=== PATIENT | female | born 1980 | race American Indian/Alaskan Native ===

== ENCOUNTER 2016-12-29 14:46 | Emergency (ER) | payer OTHER ==
[2016-12-29 14:49] VITALS: BMI 39.8
[2016-12-29 14:51] VITALS: TEMP 98.8; O2SAT 98
--- NOTE | 2016-12-29 15:34 | ED PDOC ---
Arrival/HPI - General Chief Complaint: Headache Time Seen by Provider: 12/29/16 15:01 Historian: Patient - History of Present Illness Narrative History of Present Illness (Text): 12/29/16 15:29 36yo morbidly obese female with PMHx of hypertension, Diabetes who present with history of intermittent facial pain, nasal congestion x weeks. Also report nausea and sharp tightening abdominal pain x 3days. she admits to urinary frequency but states is secondary to her elevated BS. States her FS was 357 this morning. She did not take her insulin and Metformin today. She denies vomiting, diarrhea, constipation, fever, chills, focal weakness, visual changes , melena, urinary symptoms, any other complaint. Past Medical History - Provider Review Nursing Documentation Reviewed: Yes - Infectious Disease Hx of Infectious Diseases: None - Tetanus Immunization Tetanus Immunization: Unknown - Cardiac Hx Cardiac Disorders: Yes Hx Hypertension: Yes - Pulmonary Hx Respiratory Disorders: Yes Hx Asthma: Yes - Neurological Hx Neurological Disorder: No - HEENT Hx HEENT Disorder: No - Renal Hx Renal Disorder: No - Endocrine/Metabolic Hx Endocrine Disorders: Yes Hx Diabetes Mellitus Type 2: Yes (iddm) - Hematological/Oncological Hx Blood Disorders: No - Integumentary Hx Dermatological Disorder: No - Musculoskeletal/Rheumatological Hx Musculoskeletal Disorders: No - Gastrointestinal Hx Gastrointestinal Disorders: No - Genitourinary/Gynecological Hx Genitourinary Disorders: No - Psychiatric Hx Psychophysiologic Disorder: No Hx Substance Use: No - Past Surgical History Past Surgical History: No Previous - Surgical History Hx Section: Yes - Anesthesia Hx Anesthesia: No Hx Anesthesia Reactions: No Hx Malignant Hyperthermia: No - Suicidal Assessment Feels Threatened In Home Enviroment: No Family/Social History - Physician Review Nursing Documentation Reviewed: Yes Family/Social History: Unknown Family HX Smoking Status: Heavy Smoker > 10 Cigarettes Daily Hx Alcohol Use: No Hx Substance Use: No Hx Substance Use Treatment: No Allergies/Home Meds Allergies/Adverse Reactions: Allergies No Known Allergies Allergy (Verified 12/29/16 14:49) Home Medications: Home Meds Medication Instructions Recorded Confirmed MetFORMIN [glucoPHAGE] 1,000 mg PO BID 07/11/16 12/29/16 Losartan [Cozaar] 30 mg PO DAILY 11/10/16 12/29/16 Potassium Chloride [Klor-Con 10 meq PO DAILY 11/10/16 12/29/16 Sprinkle] Insulin Glulisine [Apidra] 5 units SC DAILY 12/29/16 12/29/16 Review of Systems - Physician Review All systems were reviewed & negative as marked: Yes - Review of Systems Constitutional: Normal Eyes: Normal ENT: Sinus Congestion Respiratory: Normal Cardiovascular: Normal Gastrointestinal: Normal, Abdominal Pain, Nausea. absent: Constipation, Diarrhea, Vomiting, Hematochezia, Hematemesis Genitourinary Female: Normal Musculoskeletal: Normal Skin: Normal Neurological: Headache. absent: Dizziness, Focal Weakness, Speech Changes, Facial Droop Endocrine: Normal Hemo/Lymphatic: Normal Psychiatric: Normal Physical Exam Vital Signs Reviewed: Yes Vital Signs Temp Pulse Resp BP Pulse Ox 12/29/16 17:11 89 18 141/75 98 12/29/16 16:08 97 H 18 143/89 98 12/29/16 14:49 98.8 F 102 H 15 145/92 H 98 Temperature: Afebrile Blood Pressure: Normal Pulse: Tachycardic Respiratory Rate: Normal Appearance: Positive for: Well-Appearing, Non-Toxic, Comfortable Pain Distress: None Mental Status: Positive for: Alert and Oriented X 3 - Systems Exam Head: Present: Atraumatic, Normocephalic Pupils: Present: PERRL Extroacular Muscles: Present: EOMI Conjunctiva: Present: Normal Mouth: Present: Moist Mucous Membranes Nose (Internal): Present: Edematous (B/L nares), Other (Tenderness over the frontal sinus) Neck: Present: Normal Range of Motion Respiratory/Chest: Present: Clear to Auscultation, Good Air Exchange. No: Respiratory Distress, Accessory Muscle Use Cardiovascular: Present: Regular Rate and Rhythm, Normal S1, S2. No: Murmurs Abdomen: Present: Tenderness (Epigastric tenderness), Normal Bowel Sounds, Other (Soft). No: Distention, Peritoneal Signs, Rebound, Guarding, McBurney's Point Tender, Rovsing's Sign Present Back: Present: Normal Inspection Upper Extremity: Present: Normal Inspection. No: Cyanosis, Edema Lower Extremity: Present: Normal Inspection. No: Edema Neurological: Present: GCS=15, CN II-XII Intact, Speech Normal Skin: Present: Warm, Dry, Normal Color. No: Rashes Psychiatric: Present: Alert, Oriented x 3, Normal Insight, Normal Concentration Medical Decision Making ED Course and Treatment: 12/29/16 22:24 Pt presented with stated history. She was neurological intact in ED. Lab was unremarkable with the exception of BS of 300. On re evaluation s/p insulin was given her FS was 186. Result was DW the pt. she was given Augmentin for Sinusitis. Referred to her PMD. To continue with her hypoglycemics. Advised TRT ED for any new or worsening symptoms. - Lab Interpretations Lab Results: 12/29/16 15:52 12/29/16 15:52 Lab Results 12/29/16 15:52: WBC 11.3 H D, RBC 4.33, Hgb 11.7 L, Hct 35.6 L, MCV 82.2, MCH 27.0, MCHC 32.9, RDW 13.4, Plt Count 255, MPV 9.8, Gran % 65.1, Lymph % (Auto) 29.2, [place] % (Auto) 4.4, Eos % (Auto) 1.1 L, Baso % (Auto) 0.2, Gran # 7.34 H, Lymph # 3.3, [place] # 0.5, Eos # 0.1, Baso # 0.02, PT 10.3, INR 0.95, APTT 26.2, Sodium 137, Potassium 3.9, Chloride 103, Carbon Dioxide 25, Anion Gap 13, BUN 10 , Creatinine 0.7, Est GFR ( Amer) > 60, Est GFR (Non-Af Amer) > 60, Random Glucose 300 H, Calcium 8.6, Total Bilirubin 0.6, AST 31, ALT 30, Alkaline Phosphatase 53, Total Protein 6.7, Albumin 3.4, Globulin 3.2, Albumin/ Globulin Ratio 1.1 12/29/16 15:15: Urine Color Yellow, Urine Appearance Clear, Urine pH 6.0, Ur Specific [place] 1.010, Urine Protein Negative, Urine Glucose (UA) >=1000, Urine Ketones Negative, Urine Blood Negative, Urine Nitrate Negative, Urine Bilirubin Negative, Urine Urobilinogen 0.2, Ur Leukocyte Esterase Negative - Medication Orders Current Medication Orders: Discontinued Medications Amoxicillin/Clavulanate Potassium (Augmentin 875 Mg-125 Mg Tab) 1 tab PO STAT STA PRN Reason: Protocol Stop: 12/29/16 17:07 Last Admin: 12/29/16 17:16 Dose: 1 TAB Sodium Chloride (Sodium Chloride 0.9%) 1,000 mls @ 999 mls/hr IV .Q1H1M STA Stop: 12/29/16 16:21 Last Admin: 12/29/16 15:46 Dose: 999 MLS/HR eMAR Start Stop Document 12/29/16 15:46 MMA (Rec: 12/29/16 15:46 [email or web address]) Intravenous Solution Start Date 12/29/16 Start Time 15:46 End Date 12/29/16 End time 16:46 Total Infusion Time 60 Insulin Human Regular (Humulin R Med) 7 units SC ONCE STA PRN Reason: Protocol Stop: 12/29/16 16:24 Ketorolac Tromethamine (Toradol) 30 mg IVP STAT STA Stop: 12/29/16 15:23 Last Admin: 12/29/16 15:45 Dose: 30 MG IVP Administration Document 12/29/16 15:45 MMA (Rec: 12/29/16 15:45 MMA [facility]) Charges for Administration # of IVP Administrations 1 Metoclopramide HCl (Reglan) 10 mg IVP STAT STA Stop: 12/29/16 15:22 Last Admin: 12/29/16 15:45 Dose: 10 MG IVP Administration Document 12/29/16 15:45 MMA (Rec: 12/29/16 15:45 MMA [facility]) Charges for Administration # of IVP Administrations 1 Disposition/Present on Arrival - Present on Arrival Any Indicators Present on Arrival: No History of DVT/PE: No History of Uncontrolled Diabetes: No Urinary Catheter: No History of Decub. Ulcer: No History Surgical Site Infection Following: None - Disposition Have Diagnosis and Disposition been Completed?: Yes Diagnosis: Hyperglycemia, Sinusitis, Abdominal pain Disposition: HOME/ ROUTINE Disposition Time: 17:10 Patient Plan: Discharge Condition: STABLE Discharge Instructions (ExitCare): Sinusitis (ED), Diabetic Hyperglycemia (ED) , Abdominal Pain (ED) Additional Instructions: Follow up with your doctor Return to ED for any new or worsening symptoms Prescriptions: Amoxicillin/Clavulanate [Augmentin 875 MG-125 MG] 1 tab PO BID #14 tab Sucralfate [Carafate] 1 gm PO DAILY #10 tablet Famotidine [Pepcid] 40 mg PO DAILY #10 tab Referrals: Abundio Blanchard MD [Primary Care Provider] - Follow up with primary Forms: WORK NOTE
[2016-12-29] MEDS: Sodium Chloride 0.9% 1,000 ML IV STA (15:46)
[2016-12-29 15:53] LABS: ADD MANUAL DIFF? NO
[2016-12-29 15:59] LABS: BASO # 0.02 K/mm3 (0.0-2.0); BASO % 0.2 % (0.0-3.0); EOS # 0.1 (0.0-0.7); EOS % 1.1 % (1.5-5.0); GRAN # 7.34 (1.4-6.5); GRAN % 65.1 % (50.0-68.0); HEMATOCRIT 35.6 % (36.0-48.0); LYMPH # 3.3 (1.2-3.4); LYMPH % 29.2 % (22.0-35.0); MEAN CELL VOLUME 82.2 fL (80.0-105.0); MEAN CORPUSCULAR HGB CONC 32.9 g/dl (31.0-37.0); MEAN PLATELET VOLUME 9.8 fl (7.0-11.0); MONO # 0.5 (0.1-0.6); MONO % 4.4 % (1.0-6.0); PLATELET COUNT 255 10^3/uL (120.0-450.0); RED CELL DISTRIBUTION WIDTH 13.4 % (11.5-14.5); WHITE BLOOD COUNT 11.3 10^3/ul (4.5-11.0)
[2016-12-29 16:09] VITALS: RESP 18
[2016-12-29 16:12] LABS: INR 0.95 (0.93-1.08); PARTIAL THROMBOPLASTIN TIME 26.2 Seconds (23.7-30.8)
[2016-12-29 16:13] LABS: ALB/GLOB RATIO 1.1 (1.1-1.8); ALKALINE PHOSPHATASE 53 U/L (38-133); ALT/SGPT 30 U/L (7-56); AST/SGOT 31 U/L (15-39); BILIRUBIN,TOTAL 0.6 mg/dL (0.2-1.3); BLOOD UREA NITROGEN 10 mg/dL (7-21); CALCIUM 8.6 mg/dL (8.4-10.5); CARBON DIOXIDE 25 mmol/L (21-33); CHLORIDE 103 mmol/L (98-107); GFR AFRICAN-AMERICAN > 60; POTASSIUM 3.9 mmol/L (3.6-5.0); SODIUM 137 mmol/L (132-148); TOTAL PROTEIN 6.7 g/dL (5.8-8.3)
[2016-12-29 16:14] LABS: GLUCOSE,RANDOM 300 mg/dL (70-110)
[2016-12-29] MEDS ORDERED: Insulin Reg-MEDIUM-Coverage SC STA (16:23)
[2016-12-29 17:11] VITALS: BP 141/75; PULSE 89
[2016-12-29] MEDS: Amoxicillin-Clav 875-125 mg Tab PO STA (17:16)
[2016-12-29 17:22] LABS: URINE APPEARANCE CLEAR (CLEAR); URINE BILIRUBIN NEGATIVE (NEGATIVE); URINE BLOOD NEGATIVE (NEGATIVE); URINE COLOR YELLOW (YELLOW); URINE GLUCOSE (UA) >=1000 mg/dL (NEGATIVE); URINE KETONE NEGATIVE (NEGATIVE); URINE LEUKOCYTE ESTERASE NEGATIVE Leu/uL (NEGATIVE); URINE PROTEIN NEGATIVE mg/dL (<30 mg/dL); URINE UROBILINOGEN 0.2 E.U./dL (<1 E.U./dL)
== END 2016-12-29 18:20 | disposition home or self-care (01) ==
LOC: ED 14:46
DX: E11.65 Type 2 diabetes mellitus with hyperglycemia (principal); J32.9 Chronic sinusitis, unspecified; R10.9 Unspecified abdominal pain; I10 Essential (primary) hypertension; E66.01 Morbid (severe) obesity due to excess calories
CPT/HCPCS: 80053; 81003; 82948; 85025; 85610; 85730; 96361; 96374; 96375; 99285; J1885; J2765; J7040

== ENCOUNTER 2017-06-07 14:52 | Emergency (ER) | payer OTHER ==
[2017-06-07 15:07] VITALS: O2SAT 98
--- NOTE | 2017-06-07 15:10 | ED PDOC ---
Arrival/HPI - General Chief Complaint: GI Problem Time Seen by Provider: 06/07/17 14:57 Historian: Patient - History of Present Illness Time/Duration: Other (2 days) Symptom Onset: Gradual Symptom Course: Unchanged Severity Level: Moderate Activities at Onset: Rest Associated Symptoms (Text): 06/07/17 15:07 Patient complains of a 2 day history of nausea and vomiting. There is generalized body pain. No fever or chills. No dyspnea. Some mild nonproductive cough. No URI symptoms. No injury or trauma. Patient is diabetic. She has not taken her insulin. She ate pizza today. No genitourinary symptoms. Past Medical History - Infectious Disease Hx of Infectious Diseases: None - Tetanus Immunization Tetanus Immunization: Unknown - Cardiac Hx Cardiac Disorders: Yes Hx Hypertension: Yes - Pulmonary Hx Respiratory Disorders: Yes Hx Asthma: Yes - Neurological Hx Neurological Disorder: No - HEENT Hx HEENT Disorder: No - Renal Hx Renal Disorder: No - Endocrine/Metabolic Hx Endocrine Disorders: Yes Hx Diabetes Mellitus Type 2: Yes (iddm) - Hematological/Oncological Hx Blood Disorders: No - Integumentary Hx Dermatological Disorder: No - Musculoskeletal/Rheumatological Hx Musculoskeletal Disorders: No - Gastrointestinal Hx Gastrointestinal Disorders: No - Genitourinary/Gynecological Hx Genitourinary Disorders: No - Psychiatric Hx Psychophysiologic Disorder: No Hx Substance Use: No - Past Surgical History Past Surgical History: No Previous - Surgical History Hx Section: Yes - Anesthesia Hx Anesthesia: No Hx Anesthesia Reactions: No Hx Malignant Hyperthermia: No - Suicidal Assessment Feels Threatened In Home Enviroment: No Family/Social History - Physician Review Nursing Documentation Reviewed: Yes Family/Social History: Unknown Family HX Smoking Status: Heavy Smoker > 10 Cigarettes Daily Hx Alcohol Use: No Hx Substance Use: No Hx Substance Use Treatment: No Allergies/Home Meds Allergies/Adverse Reactions: Allergies No Known Allergies Allergy (Verified 06/07/17 15:15) Home Medications: Home Meds Medication Instructions Recorded Confirmed MetFORMIN [glucoPHAGE] 1,000 mg PO BID 07/11/16 06/07/17 Losartan [Cozaar] 30 mg PO DAILY 11/10/16 06/07/17 Insulin Glulisine [Apidra] 5 units SC DAILY 12/29/16 06/07/17 Insulin Glargine, Recombina 5 units SC HS 06/07/17 06/07/17 [Lantus] Review of Systems - Physician Review All systems were reviewed & negative as marked: Yes - Review of Systems Constitutional: Fatigue. absent: Fevers Respiratory: Cough. absent: SOB, Sputum, Wheezing Cardiovascular: absent: Chest Pain, Palpitations, Syncope Gastrointestinal: Nausea, Vomiting. absent: Abdominal Pain, Constipation, Diarrhea, Anorexia Genitourinary Female: absent: Dysuria, Frequency, Hematuria Neurological: absent: Headache, Dizziness, Focal Weakness Physical Exam Vital Signs Temp Pulse Resp BP Pulse Ox 06/07/17 16:49 98 H 18 148/96 H 98 06/07/17 15:06 98.6 F 108 H 17 153/114 H 98 Temperature: Afebrile Blood Pressure: Normal Pulse: Regular Respiratory Rate: Normal Appearance: Positive for: Well-Appearing, Non-Toxic, Comfortable, Other ( Morbidly obese) Pain Distress: None Mental Status: Positive for: Alert and Oriented X 3 - Systems Exam Head: Present: Atraumatic, Normocephalic Pupils: Present: PERRL Extroacular Muscles: Present: EOMI Conjunctiva: Present: Normal Ears: Present: NORMAL TM, Normal Canal. No: Erythema Mouth: Present: Moist Mucous Membranes Pharnyx: No: ERYTHEMA, EXUDATE, TONSILS ENLARGED Neck: Present: Normal Range of Motion. No: MIDLINE TENDERNESS, Paraspinal Tenderness Respiratory/Chest: Present: Clear to Auscultation, Good Air Exchange, Decreased Breath Sounds. No: Respiratory Distress, Accessory Muscle Use Cardiovascular: Present: Regular Rate and Rhythm, Normal S1, S2. No: Murmurs Abdomen: Present: Normal Bowel Sounds. No: Tenderness, Distention, Peritoneal Signs, Rebound, Guarding Upper Extremity: Present: Normal Inspection. No: Cyanosis, Edema Lower Extremity: Present: Normal Inspection. No: Edema Neurological: Present: GCS=15, CN II-XII Intact, Speech Normal, Motor Func Grossly Intact Skin: Present: Warm, Dry, Normal Color. No: Rashes Psychiatric: Present: Alert, Oriented x 3, Normal Insight, Normal Concentration Medical Decision Making ED Course and Treatment: 06/07/17 17:15 Feeling much better after IV fluids and Protonix and Zofran. 06/07/17 18:01 Tolerating by mouth fluids well. Markedly improved. Blood sugar is improved to 156. Patient is ready for discharge. She needs a note for work. - Lab Interpretations Lab Results: 06/07/17 15:44 06/07/17 15:44 Lab Results 06/07/17 15:44: Sodium 136, Potassium 3.6, Chloride 102, Carbon Dioxide 23, Anion Gap 15, BUN 7, Creatinine 0.6, Est GFR ( Amer) > 60, Est GFR (Non- Af Amer) > 60, Random Glucose 409 H* D, Calcium 8.7, Total Bilirubin 0.5, AST 26 , ALT 33, Alkaline Phosphatase 67, Total Protein 6.6, Albumin 3.8, Globulin 2.8 , Albumin/Globulin Ratio 1.4, Lipase 52 06/07/17 15:44: WBC 6.8 D, RBC 4.93, Hgb 14.2, Hct 41.3, MCV 83.8, MCH 28.8, MCHC 34.4, RDW 12.9, Plt Count 222, MPV 9.9, Gran % 70.6 H, Lymph % (Auto) 22.4 , [place] % (Auto) 6.0, Eos % (Auto) 0.7 L, Baso % (Auto) 0.3, Gran # 4.82, Lymph # 1.5, [place] # 0.4, Eos # 0.1, Baso # 0.02 06/07/17 15:20: Urine Color Yellow, Urine Appearance Clear, Urine pH 6.0, Ur Specific [place] 1.015, Urine Protein 30 H, Urine Glucose (UA) >=1000, Urine Ketones Negative, Urine Blood Large H, Urine Nitrate Negative, Urine Bilirubin Negative, Urine Urobilinogen 1.0 H, Ur Leukocyte Esterase Negative, Urine RBC Tntc, Urine WBC 0 - 2, Ur Epithelial Cells 4 - 5, Urine Bacteria Small, Urine HCG, Qual Negative - Medication Orders Current Medication Orders: Sodium Chloride (Sodium Chloride 0.9%) 1,000 mls @ 500 mls/hr IV ONCE ONE Stop: 06/07/17 18:24 Last Admin: 06/07/17 16:40 Dose: 500 mls/hr eMAR Start Stop Document 06/07/17 16:40 IT (Rec: 06/07/17 16:40 IT [id number]) Intravenous Solution Start Date 06/07/17 Start Time 16:40 End Date 09/26/17 End time 17:40 Total Infusion Time 60 Discontinued Medications Sodium Chloride (Sodium Chloride 0.9%) 1,000 mls @ 1,000 mls/hr IV .Q1H STA Stop: 06/07/17 16:16 Last Admin: 06/07/17 15:54 Dose: 1,000 mls/hr eMAR Start Stop Document 06/07/17 15:54 IT (Rec: 06/07/17 15:57 IT [id number]) Intravenous Solution Start Date 06/07/17 Start Time 15:57 End Date 06/07/17 End time 16:57 Total Infusion Time 60 Insulin Human Regular (Humulin R) 10 units IV ONCE STA Stop: 06/07/17 16:27 Last Admin: 06/07/17 16:38 Dose: 10 units eMAR Start Stop Document 06/07/17 16:38 IT (Rec: 06/07/17 16:40 IT [id number]) Intravenous Solution Start Date 06/07/17 Start Time 16:40 End Date 06/07/17 End time 16:41 Total Infusion Time 1 Ondansetron HCl (Zofran Inj) 4 mg IVP ONCE ONE Stop: 06/07/17 15:38 Last Admin: 06/07/17 15:54 Dose: 4 mg IVP Administration Document 06/07/17 15:54 IT (Rec: 06/07/17 15:54 IT [id number]) Charges for Administration # of IVP Administrations 1 Pantoprazole Sodium (Protonix Inj) 40 mg IVP ONCE STA Stop: 06/07/17 15:38 Last Admin: 06/07/17 15:54 Dose: 40 mg IVP Administration Document 06/07/17 15:54 IT (Rec: 06/07/17 15:54 IT [id number]) Charges for Administration # of IVP Administrations 1 Disposition/Present on Arrival - Present on Arrival Any Indicators Present on Arrival: No History of DVT/PE: No History of Uncontrolled Diabetes: No Urinary Catheter: No History of Decub. Ulcer: No History Surgical Site Infection Following: CABG - Mediastinitis - Disposition Have Diagnosis and Disposition been Completed?: Yes Diagnosis: Hyperglycemia, Nausea and vomiting, Hypertension Disposition: HOME/ ROUTINE Disposition Time: 18:02 Patient Plan: Discharge Condition: IMPROVED Discharge Instructions (ExitCare): Diabetic Hyperglycemia (ED), Acute Nausea and Vomiting (ED) Additional Instructions: Check your sugar and dose insulin appropriately. Follow-up with PMD. Follow up in ER as needed. Prescriptions: Ondansetron [Zofran Odt] 4 mg SL Q6 #20 odt Referrals: Abundio Blanchard MD [Primary Care Provider] - Follow up with primary Forms: [facility] ([place]), WORK NOTE
[2017-06-07] MEDS ORDERED: Sodium Chloride 0.9% 1,000 ML IV STA (15:17)
[2017-06-07 15:19] VITALS: BMI 39.2
[2017-06-07 15:32] LABS: URINE BILIRUBIN NEGATIVE (NEGATIVE); URINE BLOOD LARGE (NEGATIVE); URINE GLUCOSE (UA) >=1000 mg/dL (NEGATIVE); URINE KETONE NEGATIVE (NEGATIVE); URINE LEUKOCYTE ESTERASE NEGATIVE Leu/uL (NEGATIVE); URINE PROTEIN 30 mg/dL (<30 mg/dL)
[2017-06-07 15:35] LABS: URINE APPEARANCE CLEAR (CLEAR); URINE COLOR YELLOW (YELLOW)
[2017-06-07 15:45] LABS: URINE BACTERIA SMALL (NEG); URINE RBC TNTC /hpf (0-2); URINE WBC 0 - 2 /hpf (0-6)
[2017-06-07 15:54] LABS: BASO # 0.02 K/mm3 (0.0-2.0); BASO % 0.3 % (0.0-3.0); EOS # 0.1 (0.0-0.7); EOS % 0.7 % (1.5-5.0); GRAN # 4.82 (1.4-6.5); GRAN % 70.6 % (50.0-68.0); HEMATOCRIT 41.3 % (36.0-48.0); LYMPH # 1.5 (1.2-3.4); LYMPH % 22.4 % (22.0-35.0); MEAN CELL VOLUME 83.8 fl (80.0-105.0); MEAN CORPUSCULAR HEMOGLOBIN 28.8 pg (25.0-35.0); MEAN CORPUSCULAR HGB CONC 34.4 g/dl (31.0-37.0); MEAN PLATELET VOLUME 9.9 fl (7.0-11.0); MONO # 0.4 (0.1-0.6); RED CELL DISTRIBUTION WIDTH 12.9 % (11.5-14.5); WHITE BLOOD COUNT 6.8 10^3/ul (4.5-11.0)
[2017-06-07 16:07] LABS: ALB/GLOB RATIO 1.4 (1.1-1.8); ALKALINE PHOSPHATASE 67 U/L (38-126); ALT/SGPT 33 U/L (7-56); AST/SGOT 26 U/L (14-36); BILIRUBIN,TOTAL 0.5 mg/dL (0.2-1.3); BLOOD UREA NITROGEN 7 mg/dL (7-21); CALCIUM 8.7 mg/dL (8.4-10.5); CARBON DIOXIDE 23 mmol/L (21-33); CHLORIDE 102 mmol/L (98-107); GFR AFRICAN-AMERICAN > 60; LIPASE 52 U/L (23-300); POTASSIUM 3.6 mmol/L (3.6-5.0); SODIUM 136 mmol/L (132-148); TOTAL PROTEIN 6.6 g/dL (5.8-8.3)
[2017-06-07 16:23] LABS: GLUCOSE,RANDOM 409 mg/dL (70-110)
[2017-06-07] MEDS ORDERED: Sodium Chloride 0.9% 1,000 ML IV ONE (16:25)
[2017-06-07] MEDS ORDERED: Insulin Regular 1 UNITS/0.01 ML ML IV STA (16:26)
[2017-06-07 18:18] VITALS: BP 142/85; PULSE 82; RESP 17; TEMP 98.1
== END 2017-06-07 18:19 | disposition home or self-care (01) ==
LOC: ED 14:52
DX: E11.65 Type 2 diabetes mellitus with hyperglycemia (principal); I10 Essential (primary) hypertension; R11.2 Nausea with vomiting, unspecified; F17.210 Nicotine dependence, cigarettes, uncomplicated; Z79.4 Long term (current) use of insulin
CPT/HCPCS: 80053; 81001; 83690; 84703; 85025; 96361; 96374; 96375; 99284; C9113; J2405; J7040

== ENCOUNTER 2017-06-12 12:29 | Emergency (ER) | payer OTHER ==
[2017-06-12 12:29] VITALS: BMI 39.8
[2017-06-12 12:47] VITALS: RESP 18; TEMP 98.1; O2SAT 99
--- NOTE | 2017-06-12 12:53 | ED PDOC ---
Arrival/HPI - General Chief Complaint: GI Problem Time Seen by Provider: 06/12/17 12:38 Historian: Patient - History of Present Illness Narrative History of Present Illness (Text): 06/12/17 12:55 A 37 year old female, whose past medical history includes hypertension and diabetes, presents to the emergency department complaining of episodes of nausea , vomiting, and diarrhea for past few days. Patient notes also experiencing occasional abdominal cramping but not at this time. She states she was seen and treated earlier this week for similar symptoms and was discharged with Zofran. Patient mentions she is feeling a bit better but began experiencing symptoms again and is uncertain if she may have eaten something at a restaurant that may have caused symptoms. PMD: Dr. Abundio Blanchard Time/Duration: > week (few days) Past Medical History - Provider Review Nursing Documentation Reviewed: Yes - Infectious Disease Hx of Infectious Diseases: None - Tetanus Immunization Tetanus Immunization: Unknown - Cardiac Hx Cardiac Disorders: Yes Hx Hypertension: Yes - Pulmonary Hx Respiratory Disorders: Yes Hx Asthma: Yes - Neurological Hx Neurological Disorder: No - HEENT Hx HEENT Disorder: No - Renal Hx Renal Disorder: No - Endocrine/Metabolic Hx Endocrine Disorders: Yes Hx Diabetes Mellitus Type 2: Yes (iddm) - Hematological/Oncological Hx Blood Disorders: No - Integumentary Hx Dermatological Disorder: No - Musculoskeletal/Rheumatological Hx Musculoskeletal Disorders: No - Gastrointestinal Hx Gastrointestinal Disorders: No - Genitourinary/Gynecological Hx Genitourinary Disorders: No - Psychiatric Hx Psychophysiologic Disorder: No Hx Substance Use: No - Past Surgical History Past Surgical History: No Previous - Surgical History Hx Section: Yes - Anesthesia Hx Anesthesia: No Hx Anesthesia Reactions: No Hx Malignant Hyperthermia: No - Suicidal Assessment Feels Threatened In Home Enviroment: No Family/Social History - Physician Review Nursing Documentation Reviewed: Yes Family/Social History: No Known Family HX Smoking Status: Heavy Smoker > 10 Cigarettes Daily Hx Alcohol Use: No Hx Substance Use: No Hx Substance Use Treatment: No Allergies/Home Meds Allergies/Adverse Reactions: Allergies No Known Allergies Allergy (Verified 06/12/17 12:43) Home Medications: Home Meds Medication Instructions Recorded Confirmed MetFORMIN [glucoPHAGE] 1,000 mg PO BID 07/11/16 06/12/17 Losartan [Cozaar] 30 mg PO DAILY 11/10/16 06/12/17 Insulin Glulisine [Apidra] 5 units SC DAILY 12/29/16 06/12/17 Insulin Glargine, Recombina 5 units SC HS 06/07/17 06/12/17 [Lantus] Review of Systems - Physician Review All systems were reviewed & negative as marked: Yes - Review of Systems Constitutional: absent: Fevers, Night Sweats Gastrointestinal: Abdominal Pain (occasional abdominal cramps), Diarrhea, Nausea , Vomiting Physical Exam Vital Signs Reviewed: Yes Vital Signs Temp Pulse Resp BP Pulse Ox 06/12/17 15:56 86 18 148/94 H 99 06/12/17 12:47 98.1 F 94 H 18 159/103 H 99 Temperature: Afebrile Blood Pressure: Hypertensive Pulse: Regular Respiratory Rate: Normal Appearance: Positive for: Well-Appearing Pain Distress: None Mental Status: Positive for: Alert and Oriented X 3 - Systems Exam Head: Present: Atraumatic, Normocephalic Pupils: Present: PERRL Extroacular Muscles: Present: EOMI Conjunctiva: Present: Normal Mouth: Present: Moist Mucous Membranes Neck: Present: Normal Range of Motion Respiratory/Chest: Present: Clear to Auscultation, Good Air Exchange. No: Respiratory Distress, Accessory Muscle Use Cardiovascular: Present: Regular Rate and Rhythm, Normal S1, S2. No: Murmurs Abdomen: Present: Normal Bowel Sounds. No: Tenderness, Distention, Peritoneal Signs Back: Present: Normal Inspection Upper Extremity: Present: Normal Inspection. No: Cyanosis, Edema Lower Extremity: Present: Normal Inspection. No: Edema Neurological: Present: GCS=15, CN II-XII Intact, Speech Normal Skin: Present: Warm, Dry, Normal Color. No: Rashes Psychiatric: Present: Alert, Oriented x 3, Normal Insight, Normal Concentration Medical Decision Making ED Course and Treatment: 06/12/17 12:59 Impression: 37 year old female with episodes of nausea, vomiting, diarrhea, and occasional abdominal cramping. Physical exam is benign. Plan: -- Labs -- Urinalysis -- Pepcid -- Zofran -- IV Fluids -- Reassess and disposition Prior Visits: Notes and results from previous visits were reviewed. Patient was last seen in the emergency department on 06/07/2017 for nausea and vomiting. Patient was discharged home. Progress Notes: - Lab Interpretations Lab Results: 06/12/17 14:35 10/01/17 14:35 Lab Results 06/12/17 14:35: WBC 8.3 D, RBC 4.59, Hgb 13.0, Hct 38.7, MCV 84.3, MCH 28.3, MCHC 33.6, RDW 12.9, Plt Count 237, MPV 9.9 06/12/17 14:35: Sodium 138, Potassium 4.2, Chloride 101, Carbon Dioxide 28, Anion Gap 13, BUN 10, Creatinine 0.7, Est GFR ( Amer) > 60, Est GFR (Non- Af Amer) > 60, Random Glucose 260 H, Calcium 9.0, Total Bilirubin 0.3, AST 24, ALT 31, Alkaline Phosphatase 64, Total Protein 6.8, Albumin 3.9, Globulin 2.9, Albumin/Globulin Ratio 1.3, Lipase 87 06/12/17 14:32: Urine Color Yellow, Urine Appearance Clear, Urine pH 7.0, Ur Specific [place] 1.020, Urine Protein Negative, Urine Glucose (UA) >=1000, Urine Ketones Negative, Urine Blood Negative, Urine Nitrate Negative, Urine Bilirubin Negative, Urine Urobilinogen 0.2, Ur Leukocyte Esterase Negative, Urine HCG, Qual Negative I have reviewed the lab results: Yes - Medication Orders Current Medication Orders: Discontinued Medications Famotidine (Pepcid) 20 mg IVP STAT STA Stop: 06/12/17 14:02 Last Admin: 06/12/17 14:46 Dose: 20 mg IVP Administration Document 06/12/17 14:46 AD (Rec: 06/12/17 14:46 AD [id number]) Charges for Administration # of IVP Administrations 1 Sodium Chloride (Sodium Chloride 0.9%) 1,000 mls @ 999 mls/hr IV .Q1H1M STA Stop: 06/12/17 15:01 Last Admin: 06/12/17 14:46 Dose: 999 mls/hr eMAR Start Stop Document 06/12/17 14:46 AD (Rec: 06/12/17 14:46 AD [id number]) Intravenous Solution Start Date 06/12/17 Start Time 14:46 Ondansetron HCl (Zofran Inj) 4 mg IVP ONCE ONE Stop: 06/12/17 14:02 Last Admin: 06/12/17 14:46 Dose: 4 mg IVP Administration Document 06/12/17 14:46 AD (Rec: 06/12/17 14:47 AD [id number]) Charges for Administration # of IVP Administrations 1 - Scribe Statement The provider has reviewed the documentation as recorded by the Reneibe Katina Hallman Provider Scribe Attestation: All medical record entries made by the Scribe were at my direction and personally dictated by me. I have reviewed the chart and agree that the record accurately reflects my personal performance of the history, physical exam, medical decision making, and the department course for this patient. I have also personally directed, reviewed, and agree with the discharge instructions and disposition. Disposition/Present on Arrival - Present on Arrival Any Indicators Present on Arrival: No History of DVT/PE: No History of Uncontrolled Diabetes: No Urinary Catheter: No History of Decub. Ulcer: No History Surgical Site Infection Following: CABG - Mediastinitis - Disposition Have Diagnosis and Disposition been Completed?: Yes Diagnosis: Gastroenteritis Disposition: HOME/ ROUTINE Disposition Time: 16:41 Patient Plan: Discharge Patient Problems: Current Active Problems Problem Status Onset Gastroenteritis Acute Condition: STABLE Discharge Instructions (ExitCare): Gastroenteritis (ED) Additional Instructions: Drink plenty of liquids/can have Gatorade or Pedialyte/[place] diet/advance your diet as tolerated/follow up with your doctor this week Referrals: Abundio Blanchard MD [Primary Care Provider] - Follow up with primary Forms: [employer] [employer] [facility] ([place]), WORK NOTE
[2017-06-12] MEDS ORDERED: Sodium Chloride 0.9% 1,000 ML IV STA (14:01)
[2017-06-12 14:54] LABS: HEMATOCRIT 38.7 % (36.0-48.0); MEAN CELL VOLUME 84.3 fl (80.0-105.0); MEAN CORPUSCULAR HEMOGLOBIN 28.3 pg (25.0-35.0); MEAN CORPUSCULAR HGB CONC 33.6 g/dl (31.0-37.0); MEAN PLATELET VOLUME 9.9 fl (7.0-11.0); RED CELL DISTRIBUTION WIDTH 12.9 % (11.5-14.5); WHITE BLOOD COUNT 8.3 10^3/ul (4.5-11.0)
[2017-06-12 14:55] LABS: URINE BILIRUBIN NEGATIVE (NEGATIVE); URINE BLOOD NEGATIVE (NEGATIVE); URINE GLUCOSE (UA) >=1000 mg/dL (NEGATIVE); URINE KETONE NEGATIVE (NEGATIVE); URINE LEUKOCYTE ESTERASE NEGATIVE Leu/uL (NEGATIVE); URINE PROTEIN NEGATIVE mg/dL (<30 mg/dL); URINE UROBILINOGEN 0.2 E.U./dL (<1 E.U./dL)
[2017-06-12 14:57] LABS: URINE APPEARANCE CLEAR (CLEAR); URINE COLOR YELLOW (YELLOW)
[2017-06-12 15:05] LABS: ALB/GLOB RATIO 1.3 (1.1-1.8); ALKALINE PHOSPHATASE 64 U/L (38-126); ALT/SGPT 31 U/L (7-56); AST/SGOT 24 U/L (14-36); BILIRUBIN,TOTAL 0.3 mg/dL (0.2-1.3); BLOOD UREA NITROGEN 10 mg/dL (7-21); CARBON DIOXIDE 28 mmol/L (21-33); CHLORIDE 101 mmol/L (98-107); GFR AFRICAN-AMERICAN > 60; GLUCOSE,RANDOM 260 mg/dL (70-110); LIPASE 87 U/L (23-300); POTASSIUM 4.2 mmol/L (3.6-5.0); SODIUM 138 mmol/L (132-148); TOTAL PROTEIN 6.8 g/dL (5.8-8.3)
[2017-06-12 15:57] VITALS: BP 148/94; PULSE 86
== END 2017-06-12 17:12 | disposition home or self-care (01) ==
LOC: ED 12:29
DX: K52.9 Noninfective gastroenteritis and colitis, unspecified (principal)
CPT/HCPCS: 80053; 81003; 83690; 84703; 85027; 96374; 96375; 99284; J2405; J7040

== ENCOUNTER 2017-09-20 17:27 | Emergency (ER) | payer OTHER ==
[2017-09-20 17:28] VITALS: BMI 39.8
[2017-09-20 17:53] VITALS: BP 146/103; PULSE 97; RESP 16; TEMP 98.6; O2SAT 98
[2017-09-20] MEDS ORDERED: Sodium Chloride 0.9% 1,000 ML IV STA (18:30)
[2017-09-20] MEDS ORDERED: Insulin Regular 1 UNITS/0.01 ML ML IV STA (18:30)
--- NOTE | 2017-09-20 18:37 | ED PDOC ---
Arrival/HPI - General Chief Complaint: Flu-like Symptoms Time Seen by Provider: 09/20/17 17:31 Historian: Patient - History of Present Illness Narrative History of Present Illness (Text): 09/20/17 18:32 37yo female with PMHx of hypertension and Diabetes present with complaint of generalized weakness and polydipsia for few days. States she saw her PMD few days ago and was given Cipro for Flu like symptoms. Also notes elevated FS greater than 500 yesterday. States she didn't check it today. She is on insulin and oral hypoglycemics. Denies fever, chills, nausea, vomiting, sick contact, any other complaint. Past Medical History - Provider Review Nursing Documentation Reviewed: Yes - Infectious Disease Hx of Infectious Diseases: None - Tetanus Immunization Tetanus Immunization: Unknown - Cardiac Hx Cardiac Disorders: Yes Hx Hypertension: Yes - Pulmonary Hx Respiratory Disorders: Yes Hx Asthma: Yes - Neurological Hx Neurological Disorder: No - HEENT Hx HEENT Disorder: No - Renal Hx Renal Disorder: No - Endocrine/Metabolic Hx Endocrine Disorders: Yes Hx Diabetes Mellitus Type 2: Yes (iddm) - Hematological/Oncological Hx Blood Disorders: No - Integumentary Hx Dermatological Disorder: No - Musculoskeletal/Rheumatological Hx Musculoskeletal Disorders: No - Gastrointestinal Hx Gastrointestinal Disorders: No - Genitourinary/Gynecological Hx Genitourinary Disorders: No - Psychiatric Hx Psychophysiologic Disorder: No Hx Substance Use: No - Past Surgical History Past Surgical History: No Previous - Surgical History Hx Section: Yes - Anesthesia Hx Anesthesia: No Hx Anesthesia Reactions: No Hx Malignant Hyperthermia: No - Suicidal Assessment Feels Threatened In Home Enviroment: No Family/Social History - Physician Review Nursing Documentation Reviewed: Yes Family/Social History: Unknown Family HX Smoking Status: Heavy Smoker > 10 Cigarettes Daily Hx Alcohol Use: No Hx Substance Use: No Hx Substance Use Treatment: No Allergies/Home Meds Allergies/Adverse Reactions: Allergies No Known Allergies Allergy (Verified 06/12/17 12:43) Home Medications: Home Meds Medication Instructions Recorded Confirmed MetFORMIN [glucoPHAGE] 1,000 mg PO BID 07/11/16 09/20/17 Losartan [Cozaar] 30 mg PO DAILY 11/10/16 09/20/17 Insulin Glulisine [Apidra] 5 units SC DAILY 12/29/16 09/20/17 Insulin Glargine, Recombina 5 units SC HS 06/07/17 09/20/17 [Lantus] Ciprofloxacin [Cipro] 500 mg PO BID 09/20/17 09/20/17 Review of Systems - Physician Review All systems were reviewed & negative as marked: Yes - Review of Systems Constitutional: Fatigue Eyes: Normal ENT: Normal Respiratory: Normal Cardiovascular: Normal Gastrointestinal: Normal Genitourinary Female: Normal Musculoskeletal: Normal Skin: Normal Neurological: Normal Endocrine: Polydipsia. absent: Polyuria Hemo/Lymphatic: Normal Psychiatric: Normal Physical Exam Vital Signs Reviewed: Yes Vital Signs Temp Pulse Resp BP Pulse Ox 09/20/17 17:48 98.6 F 97 H 16 146/103 H 98 Temperature: Afebrile Blood Pressure: Hypertensive Pulse: Regular Respiratory Rate: Normal Appearance: Positive for: Well-Appearing, Non-Toxic, Comfortable Pain Distress: None Mental Status: Positive for: Alert and Oriented X 3 Finger Stick Blood Glucose: 420 - Systems Exam Head: Present: Atraumatic, Normocephalic Pupils: Present: PERRL Extroacular Muscles: Present: EOMI Conjunctiva: Present: Normal Mouth: Present: Moist Mucous Membranes Neck: Present: Normal Range of Motion Respiratory/Chest: Present: Clear to Auscultation, Good Air Exchange. No: Respiratory Distress, Accessory Muscle Use Cardiovascular: Present: Regular Rate and Rhythm, Normal S1, S2. No: Murmurs Abdomen: Present: Normal Bowel Sounds. No: Tenderness, Distention, Peritoneal Signs Back: Present: Normal Inspection Upper Extremity: Present: Normal Inspection. No: Cyanosis, Edema Lower Extremity: Present: Normal Inspection. No: Edema Neurological: Present: GCS=15, CN II-XII Intact, Speech Normal Skin: Present: Warm, Dry, Normal Color. No: Rashes Psychiatric: Present: Alert, Oriented x 3, Normal Insight, Normal Concentration Medical Decision Making ED Course and Treatment: 09/20/17 21:26 Pt was hemodynamcially stable in ED. Her lab was unremarkable with the exception of elevated BS. Her FS improved in ED with hydration and insulin. Result was DW the pt. she was advised to take her medications, drink plenty of fluid and f/u with her PMD. - Lab Interpretations Lab Results: 09/20/17 19:00 09/20/17 19:00 Lab Results 09/20/17 20:13: POC Glucose (mg/dL) 237 H 09/20/17 19:04: Urine Color Yellow, Urine Appearance Clear, Urine pH 6.0, Ur Specific [place] 1.010, Urine Protein Negative, Urine Glucose (UA) >=1000, Urine Ketones Negative, Urine Blood Negative, Urine Nitrate Negative, Urine Bilirubin Negative, Urine Urobilinogen 0.2, Ur Leukocyte Esterase Negative 09/20/17 19:00: PT 10.7, INR 0.94, APTT 29.1 09/20/17 19:00: Sodium 136, Potassium 4.0, Chloride 101, Carbon Dioxide 23, Anion Gap 16, BUN 11, Creatinine 0.6 L, Est GFR ( Amer) > 60, Est GFR ( Non-Af Amer) > 60, Random Glucose 424 H* D, Calcium 9.6, Total Bilirubin 0.4, AST 23, ALT 27, Alkaline Phosphatase 68, Lactate Dehydrogenase 418, Total Creatine Kinase 91, Troponin I < 0.01, Total Protein 7.3, Albumin 4.1, Globulin 3.2, Albumin/Globulin Ratio 1.3 09/20/17 19:00: WBC 11.1 H D, RBC 4.99, Hgb 14.2, Hct 42.6, MCV 85.4, MCH 28.5, MCHC 33.3, RDW 12.9, Plt Count 236, MPV 10.4, Gran % 68.0, Lymph % (Auto) 27.5, [place] % (Auto) 3.1, Eos % (Auto) 1.1 L, Baso % (Auto) 0.3, Gran # 7.57 H, Lymph # 3.1, Swift # 0.3, Eos # 0.1, Baso # 0.03 09/20/17 18:27: POC Glucose (mg/dL) 420 H* - Medication Orders Current Medication Orders: Discontinued Medications Sodium Chloride (Sodium Chloride 0.9%) 1,000 mls @ 999 mls/hr IV .Q1H1M STA Stop: 09/20/17 19:30 Last Admin: 09/20/17 19:12 Dose: 999 mls/hr eMAR Start Stop Document 09/20/17 19:12 EQ (Rec: 09/20/17 19:13 EQ [facility] [id number]) Intravenous Solution Start Date 09/20/17 Start Time 19:13 Insulin Human Regular (Humulin R) 10 units IV ONCE STA PRN Reason: Protocol Stop: 09/20/17 18:31 Last Admin: 09/20/17 19:12 Dose: 10 units eMAR Start Stop Document 09/20/17 19:12 EQ (Rec: 09/20/17 19:12 EQ [id number]) Intravenous Solution Start Date 09/20/17 Start Time 19:12 MAR Blood Glucose Document 09/20/17 19:12 EQ (Rec: 09/20/17 19:12 EQ [id number]) Blood Glucose Finger Stick Blood Glucose (70-120) 420 Disposition/Present on Arrival - Present on Arrival Any Indicators Present on Arrival: No History of DVT/PE: No History of Uncontrolled Diabetes: No Urinary Catheter: No History of Decub. Ulcer: No History Surgical Site Infection Following: CABG - Mediastinitis - Disposition Have Diagnosis and Disposition been Completed?: Yes Diagnosis: Hyperglycemia Disposition: HOME/ ROUTINE Disposition Time: 21:15 Patient Plan: Discharge Patient Problems: Current Active Problems Problem Status Onset Hyperglycemia Acute Condition: STABLE Discharge Instructions (ExitCare): Diabetic Hyperglycemia (ED) Additional Instructions: Drink plenty of fluid, rest and follow up with your Doctor Return to ED for any new or worsening symptoms Referrals: Miguel A Lynn MD [Primary Care Provider] - Follow up with primary Forms: [employer] (Arabic), WORK NOTE
[2017-09-20 19:25] LABS: BASO # 0.03 K/mm3 (0.0-2.0); BASO % 0.3 % (0.0-3.0); EOS # 0.1 (0.0-0.7); EOS % 1.1 % (1.5-5.0); GRAN # 7.57 (1.4-6.5); HEMOGLOBIN 14.2 g/dL (12.0-16.0); LYMPH # 3.1 (1.2-3.4); LYMPH % 27.5 % (22.0-35.0); MEAN CELL VOLUME 85.4 fl (80.0-105.0); MEAN CORPUSCULAR HEMOGLOBIN 28.5 pg (25.0-35.0); MEAN CORPUSCULAR HGB CONC 33.3 g/dl (31.0-37.0); MEAN PLATELET VOLUME 10.4 fl (7.0-11.0); MONO # 0.3 (0.1-0.6); MONO % 3.1 % (1.0-6.0); RBC 4.99 10^6/uL (3.5-6.1); RED CELL DISTRIBUTION WIDTH 12.9 % (11.5-14.5); WHITE BLOOD COUNT 11.1 10^3/ul (4.5-11.0)
[2017-09-20 19:25] LABS: URINE APPEARANCE CLEAR (CLEAR); URINE BILIRUBIN NEGATIVE (NEGATIVE); URINE BLOOD NEGATIVE (NEGATIVE); URINE COLOR YELLOW (YELLOW); URINE GLUCOSE (UA) >=1000 mg/dL (NEGATIVE); URINE LEUKOCYTE ESTERASE NEGATIVE Leu/uL (NEGATIVE); URINE NITRATE NEGATIVE (NEGATIVE); URINE PROTEIN NEGATIVE mg/dL (<30 mg/dL); URINE UROBILINOGEN 0.2 E.U./dL (<1 E.U./dL)
[2017-09-20 19:44] LABS: TROPONIN I < 0.01 ng/mL
[2017-09-20 19:55] LABS: ALB/GLOB RATIO 1.3 (1.1-1.8); ALBUMIN 4.1 g/dL (3.0-4.8); ALT/SGPT 27 U/L (7-56); AST/SGOT 23 U/L (14-36); BLOOD UREA NITROGEN 11 mg/dL (7-21); CALCIUM 9.6 mg/dL (8.4-10.5); GFR AFRICAN-AMERICAN > 60; GFR NON-AFRICAN AMERICAN > 60
[2017-09-20 20:15] LABS: INR 0.94 (0.93-1.08); PARTIAL THROMBOPLASTIN TIME 29.1 Seconds (25.1-36.5); PROTHROMBIN TIME 10.7 SECONDS (9.4-12.5)
== END 2017-09-20 21:15 | disposition home or self-care (01) ==
LOC: ED 17:27
DX: E11.65 Type 2 diabetes mellitus with hyperglycemia (principal); I10 Essential (primary) hypertension; F17.210 Nicotine dependence, cigarettes, uncomplicated; Z79.4 Long term (current) use of insulin
CPT/HCPCS: 80053; 81003; 82550; 82948; 83615; 84484; 85025; 85610; 85730; 99281; J7040

== ENCOUNTER 2017-11-14 09:49 | Emergency (ER) | payer OTHER ==
[2017-11-14 09:50] VITALS: BMI 39.8
[2017-11-14 10:11] VITALS: TEMP 98
[2017-11-14 11:31] VITALS: RESP 18
--- NOTE | 2017-11-14 12:31 | RAD ---
PROCEDURE: Left Knee Radiographs. HISTORY: Pain. COMPARISON: None. FINDINGS: BONES: Bone alignment and mineralization are normal. There is no acute displaced fracture or bone destruction. JOINTS: There is mild tricompartmental degenerative osteoarthrosis with reduced joint spaces, marginal spurring and tibial spiking, worse in the medial compartment. JOINT EFFUSION: None. OTHER FINDINGS: None. IMPRESSION: No acute fracture or dislocation. Mild tricompartmental degenerative osteoarthrosis, worse in the medial compartment.
--- NOTE | 2017-11-14 13:47 | ED PDOC ---
Arrival/HPI - General Chief Complaint: Lower Extremity Problem/Injury Time Seen by Provider: 11/14/17 10:52 Historian: Patient - History of Present Illness Narrative History of Present Illness (Text): 11/14/17 13:48 37-year-old female presents today with left leg pain and left knee pain. Patient states she has pain to the anterior aspect of the knee that radiates to the posterior aspect of the knee and calf. Patient states the pain is worse with walking. pt states the pain has been present for 4 days. Patient denies numbness weakness or tingling in the extremity. No chest pain or shortness of breath. Denies dizziness or weakness. No other complaints. Time/Duration: Other (4 days) Symptom Onset: Gradual Quality: Aching Severity Level: 6 Past Medical History - Provider Review Nursing Documentation Reviewed: Yes - Travel History Have you recently traveled outside [place] w/in the past 3 mons?: No - Infectious Disease Hx of Infectious Diseases: None - Tetanus Immunization Tetanus Immunization: Unknown - Cardiac Hx Cardiac Disorders: Yes Hx Hypertension: Yes - Pulmonary Hx Respiratory Disorders: Yes Hx Asthma: Yes - Neurological Hx Neurological Disorder: No - HEENT Hx HEENT Disorder: No - Renal Hx Renal Disorder: No - Endocrine/Metabolic Hx Endocrine Disorders: Yes Hx Diabetes Mellitus Type 2: Yes (iddm) - Hematological/Oncological Hx Blood Disorders: No - Integumentary Hx Dermatological Disorder: No - Musculoskeletal/Rheumatological Hx Musculoskeletal Disorders: No - Gastrointestinal Hx Gastrointestinal Disorders: No - Genitourinary/Gynecological Hx Genitourinary Disorders: No - Psychiatric Hx Psychophysiologic Disorder: No Hx Substance Use: No - Past Surgical History Past Surgical History: No Previous - Surgical History Hx Section: Yes - Anesthesia Hx Anesthesia: No Hx Anesthesia Reactions: No Hx Malignant Hyperthermia: No - Suicidal Assessment Feels Threatened In Home Enviroment: No Family/Social History - Physician Review Nursing Documentation Reviewed: Yes Family/Social History: Unknown Family HX Smoking Status: Heavy Smoker > 10 Cigarettes Daily Hx Alcohol Use: No Hx Substance Use: No Hx Substance Use Treatment: No Allergies/Home Meds Allergies/Adverse Reactions: Allergies No Known Allergies Allergy (Verified 11/14/17 10:05) Home Medications: Home Meds Medication Instructions Recorded Confirmed MetFORMIN [glucoPHAGE] 1,000 mg PO BID 07/11/16 11/14/17 Losartan [Cozaar] 30 mg PO DAILY 11/10/16 11/14/17 Insulin Glulisine [Apidra] 5 units SC DAILY 12/29/16 11/14/17 Insulin Glargine, Recombina 5 units SC HS 06/07/17 11/14/17 [Lantus] Review of Systems - Review of Systems Constitutional: absent: Fatigue, Fevers Respiratory: absent: SOB Cardiovascular: absent: Chest Pain, Palpitations Gastrointestinal: absent: Abdominal Pain, Nausea Musculoskeletal: Arthralgias. absent: Back Pain, Neck Pain Skin: absent: Rash, Pruritis Neurological: absent: Headache, Dizziness Psychiatric: absent: Anxiety, Depression Physical Exam Vital Signs Reviewed: Yes Vital Signs Temp Pulse Resp BP Pulse Ox 11/14/17 13:19 75 18 135/75 100 11/14/17 11:30 79 18 138/89 100 11/14/17 10:10 98.0 F 82 16 142/99 H 100 Temperature: Afebrile Blood Pressure: Hypertensive Pulse: Regular Respiratory Rate: Normal Appearance: Positive for: Well-Appearing, Non-Toxic, Comfortable Pain Distress: None Mental Status: Positive for: Alert and Oriented X 3 - Systems Exam Head: Present: Atraumatic Mouth: Present: Moist Mucous Membranes Neck: Present: Normal Range of Motion Respiratory/Chest: Present: Clear to Auscultation Cardiovascular: Present: Regular Rate and Rhythm Upper Extremity: Present: Normal Inspection Lower Extremity: Present: Normal Inspection, CALF TENDERNESS, NORMAL PULSES, Tenderness (left leg; + ttp over anterior inferior aspect of knee; + ttp over posterior aspect of knee; no edema, no erythema; no ecchymosis; + ttp over posterior proximal calf; no edema; no erythema; no ecchymosis; full rom of knee. sensation and distal pulses intact; cap refill <2. ), Neurovascularly Intact, Capillary Refill < 2 s. No: Edema, Swelling, Erythema, Deformity, Temperature Abnormalties Neurological: Present: GCS=15, Speech Normal Skin: Present: Warm, Dry, Normal Color. No: Rashes Psychiatric: Present: Alert, Oriented x 3 Medical Decision Making ED Course and Treatment: 11/14/17 14:26 Patient nontoxic well-appearing in no distress with stable vital signs X-rays of the knee: FINDINGS: BONES: Bone alignment and mineralization are normal. There is no acute displaced fracture or bone destruction. JOINTS: There is mild tricompartmental degenerative osteoarthrosis with reduced joint spaces, marginal spurring and tibial spiking, worse in the medial compartment. JOINT EFFUSION: None. OTHER FINDINGS: None. IMPRESSION: No acute fracture or dislocation. Mild tricompartmental degenerative osteoarthrosis, worse in the medial compartment. venous duplex of left leg; no dvt verbal report from US tech. pt refused injection for pain. Motrin po Patient placed in knee immobilizer. pt refused crutches; cane given for ambulation I discussed all results with patient advised to followup with the orthopedist for the next 2 days. Return if symptoms worsen persist or new symptoms develop Patient verbalizes understanding of discharge instructions and need for immediate followup. all aspects of this case were discussed the attending of record. Impression: knee pain, leg pain Motrin every 6 hours as needed for pain Rest, ice, compression, elevation Use cane for ambulation Followup with the orthopedist within the next 2 days Followup with primary care physician within the next 2 days Return if symptoms worsen persist or if new symptoms develop - RAD Interpretation Radiology Orders: 11/14/17 10:52 KNEE WITH PATELLA LEFT 3 VIEW [RAD] Stat DUPLEX LOWER EXTRM VEIN LEFT [US] Stat - Medication Orders Current Medication Orders: Discontinued Medications Ibuprofen (Motrin Tab) 600 mg PO STAT STA Stop: 11/14/17 10:53 Last Admin: 11/14/17 11:07 Dose: 600 mg MAR Pain/Vitals Document 11/14/17 11:07 GMD (Rec: 11/14/17 11:08 GMD [id number]) Pain Reassessment Is This A Pain ReAssessment? No Presence of Pain Presence of Pain Yes Location Left, Right or Bilateral Left Upper or Lower Lower Pain Location Body Site leg Disposition/Present on Arrival - Present on Arrival Any Indicators Present on Arrival: Yes History of DVT/PE: No History of Uncontrolled Diabetes: Yes Urinary Catheter: No History of Decub. Ulcer: No History Surgical Site Infection Following: None - Disposition Have Diagnosis and Disposition been Completed?: Yes Diagnosis: Knee pain, Leg pain Disposition: HOME/ ROUTINE Disposition Time: 13:44 Patient Plan: Discharge Condition: GOOD Discharge Instructions (ExitCare): Knee Pain Additional Instructions: Motrin every 6 hours as needed for pain Rest, ice, compression, elevation Use cane for ambulation Followup with the orthopedist within the next 2 days Followup with primary care physician within the next 2 days Return if symptoms worsen persist or if new symptoms develop Prescriptions: Ibuprofen [Motrin] 600 mg PO Q6H PRN #20 tab PRN Reason: pain/fever reduction Referrals: Josse Moralez MD [Staff Provider] - Follow up with primary Hugh Beltran MD [Staff Provider] - Follow up with primary [facility] [place] [Outside] - Follow up with primary Forms: [employer] (Swiss), WORK NOTE
[2017-11-14 13:56] VITALS: BP 152/92; PULSE 74; O2SAT 98
--- NOTE | 2017-11-14 21:43 | US ---
PROCEDURE: Left lower extremity venous US HISTORY: Leg pain and swelling. Evaluate for DVT. PHYSICIAN(S): Raymond Rowell MD. TECHNIQUE: Duplex sonography and color-flow Doppler with graded compression were used to evaluate the deep venous system of the left lower extremity. FINDINGS: The visualized deep venous system of the left lower extremity is sonographically normal and compressible. Normal wave forms and augmentation are seen. There is no sonographic evidence for deep venous thrombosis in the visualized segments of the left lower extremity. IMPRESSION: 1. No sonographic evidence for deep venous thrombosis in the visualized segments of the left lower extremity.
== END 2017-11-14 13:59 | disposition home or self-care (01) ==
LOC: ED 09:49
DX: M25.562 Pain in left knee (principal); M79.605 Pain in left leg; E11.9 Type 2 diabetes mellitus without complications; Z79.4 Long term (current) use of insulin; I10 Essential (primary) hypertension; F17.210 Nicotine dependence, cigarettes, uncomplicated

== ENCOUNTER 2017-12-25 14:24 | Emergency (ER) | payer OTHER ==
[2017-12-25 14:24] VITALS: BMI 39.8
[2017-12-25 14:40] VITALS: BP 147/96; PULSE 87; RESP 16; TEMP 98.1; O2SAT 100
--- NOTE | 2017-12-25 14:42 | ED PDOC ---
Arrival/HPI - General Chief Complaint: Lower Extremity Problem/Injury Time Seen by Provider: 12/25/17 14:39 Historian: Patient, [facility] - History of Present Illness Narrative History of Present Illness (Text): 12/25/17 14:42 37 y/o female, pmh including htn/dm/cellulitis/lt. knee tricompartmental degenerative joint disease, nkda, c/o lt. knee pain x 2 days with no fall or trauma. aching pain, radiating from front of the knee to the posterior, no calf pain, seen in the ER couple weeks ago and xray show lt. knee tricompartmental joint disease, never follow up with the pmd and orthopedic, no new injury or fall, no other medical or psychological complaints. 12/25/17 14:55 Past Medical History - Provider Review Nursing Documentation Reviewed: Yes - Infectious Disease Hx of Infectious Diseases: None - Tetanus Immunization Tetanus Immunization: Unknown - Cardiac Hx Cardiac Disorders: Yes Hx Hypertension: Yes - Pulmonary Hx Respiratory Disorders: Yes Hx Asthma: Yes - Neurological Hx Neurological Disorder: No - HEENT Hx HEENT Disorder: No - Renal Hx Renal Disorder: No - Endocrine/Metabolic Hx Endocrine Disorders: Yes Hx Diabetes Mellitus Type 2: Yes (iddm) - Hematological/Oncological Hx Blood Disorders: No - Integumentary Hx Dermatological Disorder: No - Musculoskeletal/Rheumatological Hx Musculoskeletal Disorders: No - Gastrointestinal Hx Gastrointestinal Disorders: No - Genitourinary/Gynecological Hx Genitourinary Disorders: No - Psychiatric Hx Psychophysiologic Disorder: No Hx Substance Use: No - Past Surgical History Past Surgical History: No Previous - Surgical History Hx Section: Yes - Anesthesia Hx Anesthesia: No - Suicidal Assessment Feels Threatened In Home Enviroment: No Family/Social History - Physician Review Nursing Documentation Reviewed: Yes Family/Social History: Unknown Family HX Smoking Status: Heavy Smoker > 10 Cigarettes Daily Hx Alcohol Use: No Hx Substance Use: No Hx Substance Use Treatment: No Allergies/Home Meds Allergies/Adverse Reactions: Allergies No Known Allergies Allergy (Verified 12/25/17 14:35) Home Medications: Home Meds Medication Instructions Recorded Confirmed MetFORMIN [glucoPHAGE] 1,000 mg PO BID 07/11/16 12/25/17 Losartan [Cozaar] 30 mg PO DAILY 11/10/16 12/25/17 Insulin Glulisine [Apidra] 5 units SC DAILY 12/29/16 12/25/17 Insulin Glargine, Recombina 5 units [facility] 06/07/17 12/25/17 [Lantus] Review of Systems - Review of Systems Constitutional: absent: Fatigue, Fevers Eyes: absent: Vision Changes ENT: absent: Hearing Changes Respiratory: absent: SOB, Cough Cardiovascular: absent: Chest Pain Gastrointestinal: absent: Abdominal Pain, Nausea, Vomiting Genitourinary Female: Normal Musculoskeletal: Arthralgias. absent: Back Pain, Neck Pain, Myalgias Skin: absent: Rash, Pruritis Neurological: absent: Headache Endocrine: Normal Hemo/Lymphatic: Normal Psychiatric: Normal Physical Exam Vital Signs Reviewed: Yes Vital Signs Temp Pulse Resp BP Pulse Ox 12/25/17 14:36 98.1 F 87 16 147/96 H 100 Temperature: Afebrile Blood Pressure: Hypertensive Pulse: Regular Respiratory Rate: Normal Appearance: Positive for: Well-Appearing, Non-Toxic, Comfortable Pain Distress: Moderate Mental Status: Positive for: Alert and Oriented X 3 - Systems Exam Head: Present: Atraumatic, Normocephalic Pupils: Present: PERRL Extroacular Muscles: Present: EOMI Conjunctiva: Present: Normal Mouth: Present: Moist Mucous Membranes Neck: Present: Normal Range of Motion Respiratory/Chest: Present: Clear to Auscultation, Good Air Exchange. No: Respiratory Distress, Accessory Muscle Use Cardiovascular: Present: Regular Rate and Rhythm, Normal S1, S2. No: Murmurs Abdomen: No: Tenderness, Distention, Peritoneal Signs Back: Present: Normal Inspection Upper Extremity: Present: Normal Inspection. No: Cyanosis, Edema Lower Extremity: Present: Normal Inspection, Other (LLE: no tenderness or swelling, no deformity, +DPPT pulses, negative marianne and thopmson signs, FROM without limitation, sensation intact, motor 5/5, +DPPT pulses, capillary refill < 2 seconds, neurovascular intact. ). No: Edema Neurological: Present: GCS=15, Speech Normal, Motor Func Grossly Intact, Gait Normal, Memory Normal Skin: Present: Warm, Dry, Normal Color. No: Rashes Psychiatric: Present: Alert, Oriented x 3, Normal Insight, Normal Concentration Medical Decision Making ED Course and Treatment: 12/25/17 15:01 -LLE venuous doppler -motrin/percocet 12/25/17 16:08 -LLE Venuous Doppler: as per preliminary report, no acute DVT -Pt. feels better, discussed about the previous lt. knee xray and today's LLE venuous doppler result. -Discharge home with naproxen, knee, please follow up with the pmd and orthopedic for follow up within 2 days, return to the ER for any new or worsening signs or symptoms. - RAD Interpretation Radiology Orders: 12/25/17 14:53 DUPLEX LOWER EXTRM VEIN LEFT [US] Stat LLE Venuous Doppler: as per preliminary report, no acute DVT Typing Section Chief: Radiologist - Medication Orders Current Medication Orders: Discontinued Medications Ketorolac Tromethamine (Toradol) 60 mg IM STAT STA Stop: 12/25/17 14:54 Last Admin: 12/25/17 15:09 Dose: 60 mg MAR Pain Assessment Document 12/25/17 15:09 EWO (Rec: 12/25/17 15:09 [facility] [id number]) Pain Reassessment Is this a pain reassessment? No IM Administration Charges Document 12/25/17 15:09 EWO (Rec: 12/25/17 15:09 [facility] [id number]) Injection Site MAR Injection Site Left Deltoid Charges for Administration # of IM Administrations 1 Oxycodone/Acetaminophen (Percocet 5/325 Mg Tab) 1 tab PO STAT STA Stop: 12/25/17 14:54 Last Admin: 12/25/17 15:09 Dose: 1 tab MAR Pain Assessment Document 12/25/17 15:09 EWO (Rec: 12/25/17 15:09 [facility] [id number]) Pain Reassessment Is this a pain reassessment? No - PA / HORSE TRAINER / Resident Statement /DO has reviewed & agrees with the documentation as recorded. Disposition/Present on Arrival - Present on Arrival Any Indicators Present on Arrival: No History of DVT/PE: No History of Uncontrolled Diabetes: Yes Urinary Catheter: No History of Decub. Ulcer: No History Surgical Site Infection Following: None - Disposition Have Diagnosis and Disposition been Completed?: Yes Diagnosis: Leg pain, Degenerative joint disease of knee Disposition: HOME/ ROUTINE Disposition Time: 15:02 Patient Plan: Discharge Patient Problems: Current Active Problems Problem Status Onset Leg pain Acute Condition: IMPROVED Discharge Instructions (ExitCare): Osteoarthritis Additional Instructions: -Discharge home with naproxen, knee, please follow up with the pmd and orthopedic for follow up within 2 days, return to the ER for any new or worsening signs or symptoms. Prescriptions: Naproxen 500 mg PO BID PRN #20 tablet PRN Reason: Other Referrals: Miguel A Lynn MD [Primary Care Provider] - Follow up with primary Cy Preciado MD [Staff Provider] - Follow up with primary Forms: WORK NOTE
[2017-12-25] MEDS ORDERED: Oxycodone/Acetaminophen 5/325 mg Tab PO STA (14:53)
== END 2017-12-25 16:21 | disposition home or self-care (01) ==
LOC: ED 14:24
DX: M17.12 Unilateral primary osteoarthritis, left knee (principal); M25.562 Pain in left knee
CPT/HCPCS: 93971; 96372; 99283; J1885

== ENCOUNTER 2018-04-05 19:31 | Emergency (ER) | payer OTHER ==
[2018-04-05 19:32] VITALS: BMI 39.8
--- NOTE | 2018-04-05 20:20 | ED PDOC ---
Arrival/HPI <Bryce Ochoa - Last Filed: 04/05/18 20:23> - General Historian: Patient <Markos Calvo - Last Filed: 04/06/18 01:23> - General Chief Complaint: Back Pain Time Seen by Provider: 04/05/18 19:51 - History of Present Illness Narrative History of Present Illness (Text): 04/05/18 20:08 37yo female with pmhx of Diabetes, herniated disc who present with complaint of severe lower back pain that radiates down to her left thigh. Notes chronic history of this pain that is worse today. States she saw a pain management last week that couldn't give her any injection because her leg was swollen and he referred her to [facility] for Doppler US to r/o DVT. States she took muscle relaxer this evening without relieve. Did not take any analgesic. Denies urinary/fecal incontinence, saddle anesthesia, nausea, abdominal pain, focal weakness, urinary symptoms, fever, chills, any other complaint. (Markos Calvo) Past Medical History - Provider Review Nursing Documentation Reviewed: Yes - Infectious Disease Hx of Infectious Diseases: None - Tetanus Immunization Tetanus Immunization: Unknown - Cardiac Hx Cardiac Disorders: Yes Hx Hypertension: Yes - Pulmonary Hx Respiratory Disorders: Yes Hx Asthma: Yes - Neurological Hx Neurological Disorder: No - HEENT Hx HEENT Disorder: No - Renal Hx Renal Disorder: No - Endocrine/Metabolic Hx Endocrine Disorders: Yes Hx Diabetes Mellitus Type 2: Yes - Hematological/Oncological Hx Blood Disorders: No - Integumentary Hx Dermatological Disorder: No - Musculoskeletal/Rheumatological Hx Musculoskeletal Disorders: No - Gastrointestinal Hx Gastrointestinal Disorders: No - Genitourinary/Gynecological Hx Genitourinary Disorders: No - Psychiatric Hx Psychophysiologic Disorder: No Hx Substance Use: No - Past Surgical History Past Surgical History: No Previous - Surgical History Hx Section: Yes - Anesthesia Hx Anesthesia: No - Suicidal Assessment Feels Threatened In Home Enviroment: No <Markos Calvo - Last Filed: 04/06/18 01:23> Family/Social History - Physician Review Nursing Documentation Reviewed: Yes Family/Social History: Unknown Family HX Smoking Status: Heavy Smoker > 10 Cigarettes Daily Hx Alcohol Use: No Hx Substance Use: No Hx Substance Use Treatment: No <Markos Calvo - Last Filed: 04/06/18 01:23> Allergies/Home Meds <Bryce Ochoa - Last Filed: 04/05/18 20:23> <Markos Calvo - Last Filed: 04/06/18 01:23> Allergies/Adverse Reactions: Allergies No Known Allergies Allergy (Verified 04/05/18 19:44) Home Medications: Home Meds Medication Instructions Recorded Confirmed MetFORMIN [glucoPHAGE] 1,000 mg PO BID 07/11/16 04/05/18 Losartan [Cozaar] 30 mg PO DAILY 11/10/16 04/05/18 Insulin Glulisine [Apidra] 5 units SC DAILY 12/29/16 04/05/18 Insulin Glargine, Recombina 30 units SC HS 06/07/17 04/05/18 [Lantus] Atorvastatin [Lipitor] 10 mg PO DAILY 04/05/18 04/05/18 Cyclobenzaprine [Flexeril] 5 mg PO HS 04/05/18 04/05/18 Review of Systems - Physician Review All systems were reviewed & negative as marked: Yes - Review of Systems Constitutional: Normal Eyes: Normal ENT: Normal Respiratory: Normal Cardiovascular: Normal Gastrointestinal: Normal Genitourinary Female: Normal Musculoskeletal: Back Pain Skin: Normal Neurological: Normal Endocrine: Normal Hemo/Lymphatic: Normal Psychiatric: Normal <[email or web address] A - Last Filed: 04/06/18 01:23> Physical Exam Vital Signs Reviewed: Yes Temperature: Afebrile Blood Pressure: Normal Pulse: Regular Respiratory Rate: Normal Appearance: Positive for: Well-Appearing, Non-Toxic, Comfortable Pain Distress: None Mental Status: Positive for: Alert and Oriented X 3 - Systems Exam Head: Present: Atraumatic, Normocephalic Pupils: Present: PERRL Extroacular Muscles: Present: EOMI Conjunctiva: Present: Normal Mouth: Present: Moist Mucous Membranes Neck: Present: Normal Range of Motion Respiratory/Chest: Present: Clear to Auscultation, Good Air Exchange. No: Respiratory Distress, Accessory Muscle Use Cardiovascular: Present: Regular Rate and Rhythm, Normal S1, S2. No: Murmurs Abdomen: No: Tenderness, Distention, Peritoneal Signs Back: Present: Pain with Leg Raise (Left leg). No: Midline Tenderness, Paraspinal Tenderness Upper Extremity: Present: Normal Inspection. No: Cyanosis, Edema Lower Extremity: Present: Normal Inspection. No: Edema Neurological: Present: GCS=15, CN II-XII Intact, Speech Normal Skin: Present: Warm, Dry, Normal Color. No: Rashes Psychiatric: Present: Alert, Oriented x 3, Normal Insight, Normal Concentration <Markos Calvo - Last Filed: 04/06/18 01:23> Vital Signs Temp Pulse Resp BP Pulse Ox 04/05/18 21:51 98.3 F 75 18 121/79 100 04/05/18 20:00 98.3 F 79 18 124/82 100 Medical Decision Making <Bryce Ochoa - Last Filed: 04/05/18 20:23> <Markos Calvo - Last Filed: 04/06/18 01:23> ED Course and Treatment: 04/06/18 01:21 PT's pain improved in ED with medication. . she was ambulatory and neurologically intact. 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 She have chronic back pain and have had imaging done. (Markos Calvo) - Medication Orders Current Medication Orders: Discontinued Medications Dexamethasone (Decadron Inj) 10 mg IVP STAT STA Stop: 04/05/18 20:02 Last Admin: 04/05/18 20:21 Dose: 10 mg IVP Administration Document 04/05/18 20:21 AD (Rec: 04/05/18 20:22 AD [id number]) Charges for Administration # of IVP Administrations 1 Diazepam (Valium) 5 mg PO ONCE ONE PRN Reason: Protocol Stop: 04/05/18 20:02 Last Admin: 04/05/18 20:21 Dose: 5 mg Ketorolac Tromethamine (Toradol) 30 mg IVP STAT STA Stop: 04/05/18 20:01 Last Admin: 04/05/18 20:22 Dose: 30 mg MAR Pain Assessment Document 04/05/18 20:22 AD (Rec: 04/05/18 20:22 AD [id number]) Pain Reassessment Is this a pain reassessment? No Presence of Pain Presence of Pain Yes Pain Scale Used Pain Scale Used Numeric Location Left, Right or Bilateral Left Upper or Lower Lower Pain Location Body Site Back Description Description Constant Intensity of Pain at present 8 Pain Behavior Facial Grimacing IVP Administration Document 04/05/18 20:22 AD (Rec: 07/25/18 20:22 AD [id number]) Charges for Administration # of IVP Administrations 1 - PA / [employer] / Resident Statement MD/DO has reviewed & agrees with the documentation as recorded. <Bryce Ochoa - Last Filed: 04/05/18 20:23> Disposition/Present on Arrival <Bryce Ochoa - Last Filed: 04/05/18 20:23> - Present on Arrival Any Indicators Present on Arrival: No History of DVT/PE: No History of Uncontrolled Diabetes: Yes Urinary Catheter: No History of Decub. Ulcer: No History Surgical Site Infection Following: None - Disposition Have Diagnosis and Disposition been Completed?: Yes Disposition Time: 21:15 Patient Plan: Discharge <Markos Calvo - Last Filed: 04/06/18 01:23> - Disposition Diagnosis: Chronic back pain Disposition: HOME/ ROUTINE Condition: STABLE Discharge Instructions (ExitCare): Chronic Pain (DC) Additional Instructions: Follow up with your Doctor/pain management Return to ED for any new or worsening symptoms Prescriptions: Lidocaine 5% [Lidoderm] 1 each TP BID #10 patch Naproxen [Naprosyn] 500 mg PO BID #20 tablet Referrals: Terrell Starr MD [Staff Provider] - Follow up with primary Forms: [employer] ([place])
[2018-04-05 21:59] VITALS: BP 121/79; PULSE 75; RESP 18; TEMP 98.3; O2SAT 100
== END 2018-04-05 21:51 | disposition home or self-care (01) ==
LOC: ED 19:31
DX: M54.5 Low back pain (principal); G89.29 Other chronic pain; E11.9 Type 2 diabetes mellitus without complications; I10 Essential (primary) hypertension; F17.210 Nicotine dependence, cigarettes, uncomplicated
CPT/HCPCS: 96374; 96375; 99283; J1100; J1885